=== PATIENT | male | born 1985 | race Caucasian/White ===

== ENCOUNTER 2024-11-02 01:13 | Emergency (ER) | payer OTHER ==
[~2024-11-02] VITALS: Ht 175.3 cm; Wt 111.1 kg
[2024-11-02] MEDS ORDERED: AZIT250T13 PO (02:27)
[2024-11-02 03:14] VITALS: BP 133/102; O2SAT 95
== END 2024-11-02 03:15 | disposition home or self-care (01) ==
LOC: ER 01:24
DX: J02.9 Acute pharyngitis, unspecified (principal); R05.9 Cough, unspecified; Z20.822 Contact with and (suspected) exposure to COVID-19
CPT/HCPCS: 71045; A4606; A4663